=== PATIENT | female | born 1985 | race Caucasian/White ===

== ENCOUNTER 2019-01-19 14:08 | Emergency (ER) | payer OTHER ==
[~2019-01-19] VITALS: Ht 162.6 cm; Wt 60.0 kg
[2019-01-19 14:18] VITALS: BP 128/79; PULSE 78; RESP 18; Ht 162.6 cm; Wt 60.0 kg
[2019-01-19] MEDS ORDERED: ACETAMINOPHEN 325 MG TAB PO ONE (15:00)
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
== END 2019-01-19 16:17 | disposition home or self-care (01) ==
LOC: FTE 14:08
DX: O9A.211 Injury, poisoning and certain other consequences of external causes complicating pregnancy, first trimester (principal); S80.01XA Contusion of right knee, initial encounter; V49.40XA Driver injured in collision with unspecified motor vehicles in traffic accident, initial encounter; Z3A.11 11 weeks gestation of pregnancy
CPT/HCPCS: 73562; 73590; 76801; Z7610